=== PATIENT | female | born 1975 | race Caucasian/White ===

== ENCOUNTER → 2021-04-06 16:11 | Outpatient (CLI) | payer OTHER, SELFPAY ==
--- NOTE | 2021-04-06 | DI.MG.S_ITS ---
BILATERAL DIGITAL SCREENING MAMMOGRAM 3D/2D WITH CAD: 04/06/2021 CLINICAL: Routine screening. Baseline exam. No prior exams were available for comparison. The tissue of both breasts is heterogeneously dense. This may lower the sensitivity of mammography. Current study was also evaluated with a Computer Aided Detection (CAD) system. There are grouped fine punctate calcifications in the right breast at 12 o'clock middle depth. No other significant masses, calcifications, or other findings are seen in either breast. IMPRESSION: INCOMPLETE: NEEDS ADDITIONAL IMAGING EVALUATION The grouped fine punctate calcifications in the right breast are indeterminate. Mediolateral, spot magnification, and additional views are recommended. This exam was interpreted at Station ID: [id number]. NOTE: For mammograms, a report in lay terms will be sent to the patient. Approximately 15% of breast malignancies will not be visualized mammographically. In the management of a palpable breast mass, a negative mammogram must not discourage biopsy of a clinically suspicious lesion. Electronically Signed By: Yves hess/michael:04/07/2021 08:49:57 letter sent: Additional Imaging Needed ACR BI-RADS Category 0: Incomplete 3340F
== END ==
PROVIDERS: Referring Provider Family Medicine; Visit Provider Family Medicine
DX: Z12.31 Encounter for screening mammogram for malignant neoplasm of breast (principal)
CPT/HCPCS: 77063; 77067

== ENCOUNTER → 2021-05-06 09:11 | Outpatient (CLI) | payer OTHER, SELFPAY ==
--- NOTE | 2021-05-06 09:13 | DI.MG.S_ITS ---
UNILATERAL RIGHT DIGITAL DIAGNOSTIC MAMMOGRAM 3D/2D WITH ADDITIONAL VIEWS: 05/06/2021 CLINICAL: Additional evaluation requested from prior study. Comparison is made to exam dated: 04/06/2021 [facility]. The tissue of right breast is heterogeneously dense. This may lower the sensitivity of mammography. There are grouped fine punctate calcifications in the right breast at 12 o'clock middle depth. These are not as well seen in additional and are less prominent. No other significant masses or calcifications are seen in the breast. IMPRESSION: PROBABLY BENIGN The grouped fine punctate calcifications in the right breast are less well seen on additional views and magnification views and are probably benign. A follow-up mammogram in 6 months is is recommended to ensure stability. This exam was interpreted at Station ID: [id number]. NOTE: For mammograms, a report in lay terms will be sent to the patient. Approximately 15% of breast malignancies will not be visualized mammographically. In the management of a palpable breast mass, a negative mammogram must not discourage biopsy of a clinically suspicious lesion. Electronically Signed By: Lux Castrejon acr/:05/06/2021 09:33:00 letter sent: Followup Recommended ACR BI-RADS Category 3: Probably benign [id number]
== END ==
PROVIDERS: PCP Family Medicine; Referring Provider Family Medicine; Visit Provider Family Medicine
DX: R92.1 Mammographic calcification found on diagnostic imaging of breast (principal)
CPT/HCPCS: 77065; G0279

== ENCOUNTER → 2021-11-07 09:18 | Outpatient (CLI) | payer OTHER, SELFPAY ==
--- NOTE | 2021-11-07 | DI.MG.S_ITS ---
UNILATERAL RIGHT DIGITAL DIAGNOSTIC MAMMOGRAM 3D/2D: 11/07/2021 CLINICAL: Short term follow up. Comparison is made to exams dated: 05/06/2021 mammogram and 04/06/2021 mammogram - [facility]. The right breast is heterogeneously dense, which may obscure small masses (category c / 51-75% glandular tissue). There are grouped fine punctate calcifications in the right breast at 12 o'clock middle depth. These are not significantly changed. No other significant masses or calcifications are seen in the breast. IMPRESSION: PROBABLY BENIGN The grouped fine punctate calcifications in the right breast are probably benign. A follow-up bilateral mammogram in 6 months is recommended to demonstrate stability. Based on the Tyrer Cuzick model (a risk assessment model) the patient's lifetime risk is 12.1% and her 10 year risk is 2.3%. According to the ACR, ACS, and NCCN guidelines, an annual breast MRI exam along with mammogram is recommended if the patient's lifetime risk is 20% or greater. Findings and recommendations were conveyed to the patient during today's evaluation. This exam was interpreted at Station ID: [id number]. NOTE: For mammograms, a report in lay terms will be sent to the patient. Approximately 15% of breast malignancies will not be visualized mammographically. In the management of a palpable breast mass, a negative mammogram must not discourage biopsy of a clinically suspicious lesion. Electronically Signed By: Jose Boyd M.D. aty/:11/07/2021 09:48:25 letter sent: Followup Recommended ACR BI-RADS Category 3: Probably benign 3343F
== END ==
PROVIDERS: PCP Family Medicine; Referring Provider Family Medicine; Visit Provider Family Medicine
DX: R92.1 Mammographic calcification found on diagnostic imaging of breast (principal)
CPT/HCPCS: 77065; G0279

== ENCOUNTER → 2022-06-12 14:48 | Outpatient (CLI) | payer OTHER, SELFPAY ==
--- NOTE | 2022-06-12 14:50 | DI.MRI.S_ITS ---
PROCEDURE: MR LUMBAR SPINE WO CON INDICATIONS: Monoplegia of lower limb affecting TECHNIQUE: Noncontrast sagittal T1 spin echo and T2 fast echo, sagittal STIR, and T2 fast spin echo through the lumbar spine. In cases with scoliosis, additional coronal T2 fast spin echo may be performed. COMPARISON: [facility] Outside Film, CR, XR LUMBAR SPINE 2 OR 3 VIEWS, 04/07/2022, 14:15. FINDINGS: Image quality: Diagnostic, with note made of motion artifact. Alignment and Curvature: There is normal bony alignment. Bone Marrow: Marrow is of normal overall signal. No acute vertebral body compression fractures. Spinal Cord: Conus medullaris terminates at the L1 level. Visualized cord demonstrates normal signal and size. Paraspinous Soft Tissues: No paravertebral masses. 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 T12-L1: Normal appearance. L1-L2: Normal appearance. L2-L3: No significant abnormality is seen. L3-L4: The disc height and disk signal are well-preserved. Mild to moderate disc bulge is seen, with a slight central disc protrusion. Mild facet joint hypertrophy is seen. Mild bilateral neural foraminal narrowing is seen. No significant central canal narrowing is seen. L4-L5: The disc height and disk signal are relatively well-preserved. Moderate generalized disc bulge is seen. There is a superimposed central disc protrusion. Mild to moderate facet hypertrophy can be seen. There is at least moderate bilateral neural foraminal narrowing seen, left worse than right. There is a degree of compression seen upon the exiting left L4 nerve root. Moderate central canal narrowing is seen. L5-S1: No significant abnormality is seen. IMPRESSION: Lumbar spine degenerative changes are seen, which are worst at the L4-L5 level. Dictated by: Kumar Crowder M.D. on 06/12/2022 at 14:58 Approved by: Kumar Crowder M.D. on 06/12/2022 at 15:01
== END ==
PROVIDERS: Referring Provider Physical Medicine & Rehabilitation Pain Medicine; Visit Provider Physical Medicine & Rehabilitation Pain Medicine
DX: G83.10 Monoplegia of lower limb affecting unspecified side (principal); R26.9 Unspecified abnormalities of gait and mobility; M47.816 Spondylosis without myelopathy or radiculopathy, lumbar region
CPT/HCPCS: 72148